=== PATIENT | male | born 1990 | race Caucasian/White ===

== ENCOUNTER 2022-01-03 08:50 | Emergency (ER) | payer BC ==
[2022-01-03] MEDS: Ondansetron 4 MG/2 ML SDV IVPUSH ONE (09:11)
[2022-01-03] MEDS: Sodium Chloride 0.9% 1,000 ML IV ONE (10:08)
[2022-01-03] MEDS: Promethazine 25 MG in Sodium Chloride 0.9% 100 ML IV ONE (10:12)
[2022-01-03] MEDS: Iopamidol 755 Mg/ML 100 ML Bottle IVPUSH ONE (10:32)
[2022-01-03] MEDS: Lactated Ringers 1,000 ML IV SCH (11:37)
[2022-01-03] MEDS: fentaNYL 50 MCG/ML SDV IVPUSH ONE (11:41)
[2022-01-03] MEDS: Metoclopramide 10 MG/2 ML SDV IM ONE (13:09)
== END 2022-01-03 13:45 | disposition home or self-care (01) ==
LOC: CC.ED 08:50
DX: K52.9 Noninfective gastroenteritis and colitis, unspecified (principal); K76.0 Fatty (change of) liver, not elsewhere classified; M51.36 Other intervertebral disc degeneration, lumbar region
CPT/HCPCS: 36415; 74177; 80053; 83735; 85025; 96361; 96372; 96374; 96375; 99284-25; J2405; J2550; J2765; J3010; J7030; J7120; Q9967